=== PATIENT | male | born 1990 | race Hispanic/Latino ===

== ENCOUNTER 2017-04-13 15:26 | Inpatient (IN) | payer OTHER ==
[~2017-04-13] VITALS: Ht 167.6 cm; Wt 79.6 kg
[~2017-04-13 15:26] MED LIST: Dexamethasone 4 mg/mL Inj ONE; EPHEDrine/NS 5 mg/mL 5 mL Syringe ONE; HYDROmorphone 1 mg/mL Inj ONE; Ondansetron 2 mg/mL 2 mL Inj ONE; Phenylephrine/NS 100 mCg/mL 10 mL Syringe IVPUSH ONE; Propofol 10,000 mCg/mL 20 mL Inj ONE; Rocuronium 10 mg/mL 5 mL Inj ONE; fentaNYL-PF 50 mCg/mL 2 mL Inj ONE
[2017-04-13 15:47] VITALS: BP 159/100; PULSE 109; RESP 16; O2SAT 98
[2017-04-13] MEDS ORDERED: 0.9% Sodium Chloride 1,000 ML IV ONE ×2 (16:00→17:15)
[2017-04-13] MEDS ORDERED: Ondansetron 2 mg/mL 2 mL Inj IVPUSH ONE (16:00)
--- NOTE | 2017-04-13 16:06 | ED.REPORT ---
HPI-Abd Pain M Under 40 Date of Service Apr 13, 2017 ED Provider: Maylin Spencer History of Present Illness: 27-year-old male here for sharp right upper quadrant abd pain and nausea and vomiting 3 days. Pain worse after eating. Pain radiates to his back. He has been vomiting and unable to keep food down, he can keep down liquids. 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 He has been in long term for one week. Denies fever although upon arrival here his temperature is 38.1 Celsius. States he had a blood infection 2 and half months ago and was hospitalized that he used his brother's name at that time. He states he does not use any alcohol. Denies hepatitis C. Denies recent trauma. Denies urinary symptoms, testicular pain or penile discharge. He has had some loose stools recently but no constipation. He has no history of abdominal surgeries. Patient is accompanied by officer Nursing Notes Stated Complaint: RIGHT UPPER QUADRANT PAIN Chief Complaint: Male Abdominal Pain Nursing Notes Reviewed: Yes Allergies: Coded Allergies: No Known Allergies (Verified Allergy, 02/01/13) No Active Prescriptions or Reported Meds General Time Seen by MD: 15:52 Chief Complaint Abdominal pain Hx Obtained From: Patient Arrived By: Walk-in Sudden in Onset?: Yes Onset Occurred: 3 days ago Context of Onset: Eating Symptom Duration: Constant Progression since Onset: Constant, Gradually worsening Location: : RUQ Quality: Sharp Radiation: : Back Severity: Current: Severe Severity: Maximum: Severe Associated with: Reports: Back pain, Fever, Nausea, Vomiting Pertinent Negative: Pt denies other symptoms Exacerbated by: Eating Recent Healthcare: No recent doctor visit Similar Sx Previous: No Risk Factors CAD Risk Stratification Amphetamine Past Medical History Past Medical History Notes: "blood infection" from IV drug use Review of Systems Constitutional: Denies: Chills, Fatigue, Fever Respiratory: Denies: Dyspnea on exertion Cardiovascular: Denies: Chest pain GI: Reports: Abdominal pain, Diarrhea, Nausea, Vomiting Male: Denies Dysuria, Denies Flank pain Musculoskeletal: Reports: Back pain Complete sys rev & neg: except as marked. Physical Exam Initial Vital Signs Vital Signs (First) Date Time Temp Pulse Resp B/P Pulse Ox O2 Delivery O2 Flow Rate FiO2 04/13/17 15:47 38.1 109 16 159/100 98 Room Air Initial VS: Reviewed, Vital signs abnormal Head / Eyes: Atraumatic, Normocephalic, PERRL ENT: Mucous membranes moist, Conjunctiva normal, No scleral icterus Extremities: Vascular intact, Neuro intact, No swelling, No tenderness Skin: Warm, Dry, No cyanosis Neurologic: Alert, Oriented, Nonfocal Psychiatric: Mood/affect normal, Behavior normal, Normal thought content General/Constitutional: Awake, Alert, Well appearing Distress / Hydration: Positive: Distress mild Respiratory / Chest: Atraumatic, Breath sounds NL, Breath sounds = bilat, No respiratory distress Cardiovascular: Heart rate NL, Regular rhythm, Heart sounds NL, Peripheral circulation NL Abdomen: Atraumatic, Soft, No guarding, No rebound, BS normoactive, No distention Tenderness/Guarding/Rebound: Positive: Tender RUQ... (Severe), Tender periumbilical, Tender suprapubic Head / Eyes: Normocephalic, PERRL Neurologic: Oriented X3, Speech NL, No motor deficits, No sensory deficits, Memory NL Skin: Atraumatic, Color NL, No rash Interpretation & Diagnostics Lab Results Interpretation Result Diagram: 04/13/17 1630 04/13/17 1800 Test 04/13/17 16:30 04/13/17 17:25 04/13/17 18:00 04/13/17 18:50 White Blood Count 34.4th/mm3 (3.8-10.1) Red Blood Count 5.91mil/mm3 (4.40-5.80) Hemoglobin 16.6g/dL (13.8-17.2) Hematocrit 46.8% (41.0-50.0) Mean Corpuscular Volume 79.2fL (81-100) Mean Corpuscular Hemoglobin 28.1pg (27.0-35.0) Mean Corpuscular Hemoglobin Concent 35.5% (32.0-37.0) Red Cell Distribution Width 14.1% (12.3-15.4) Platelet Count 441bil/L (150-400) Neutrophils (%) (Auto) 89% (40-74) Lymphocytes (%) (Auto) 3% (14-46) Monocytes (%) (Auto) 7% (4-12) Eosinophils (%) (Auto) 1% (0-5) Basophils (%) (Auto) 0% (0-3) Lactic Acid Level 2.1mmol/L (0.4-2.0) Hold Blue Top Tube Received (Received) Sodium Level 132mEq/L (134-144) Potassium Level 4.0mEq/L (3.5-5.2) Chloride Level 95mEq/L (97-108) Carbon Dioxide Level 21mmol/L (18-29) Blood Urea Nitrogen 12mg/dL (6-20) Creatinine 0.63mg/dL (0.76-1.27) Estimat Glomerular Filtration Rate 161mL/min (>59) Glucose Level 116mg/dL (60-99) Calcium Level 8.4mg/dL (8.5-10.1) Magnesium Level 1.8mg/dL (1.6-2.6) Total Bilirubin 0.4mg/dL (0.0-1.2) Aspartate Amino Transf (AST/SGOT) 10U/L (0-50) Alanine Aminotransferase (ALT/SGPT) 7U/L (0-44) Alkaline Phosphatase 85U/L (25-150) Troponin T < 0.010ug/L (0.0-0.011) Total Protein 7.4g/dL (6.4-8.4) Albumin 3.2g/dL (3.4-5.0) Lipase 23U/L (13-60) Hold Urine Received (Received) Re-Eval/Medical Decision Med Decision/Clinical Course US reports large stone in gallbladder, no wall thickening, otherwise NL US. 181- report to dr hutton Patient Discharge & Departure Primary Impression: Acute cholecystitis Additional Impressions: Leukocytosis Leukocytosis type: leukemoid reaction Qualified Code: D72.823 - Leukemoid reaction Cholelithiasis Cholelithiasis location: gallbladder Cholecystitis presence: with cholecystitis Cholecystitis acuity: acute Biliary obstruction: without biliary obstruction Qualified Code: K80.00 - Calculus of gallbladder with acute cholecystitis without obstruction Referrals: NOPCP (PCP) EDSupervising Provider for APC: Shahzad Hutton DO Attending Statement Case was signed out to me from Maylin Spencer. Healthy 27-year-old male with 3 days of right upper quadrant pain that seems postprandial. Today he was febrile. Last meals 8:30 this morning. On exam he is in moderate distress due to pain but he is hemodynamically stable. Exquisitely tender right upper quadrant. Diagnostics reviewed. Pertinent positives are gallstones with possible cholecystitis on ultrasound, CT scan consistent with acute cholecystitis and a 34,000 white blood cell count. His received broad-spectrum antibiotics and IV fluids. I have a page out to our general surgeon Dr. Marmolejo. Maylin Spencer Apr 13, 2017 16:06 Shahzad Hutton DO Apr 13, 2017 19:48
[2017-04-13 16:55] LABS: Mean Corpuscular Hemoglobin 28.1 pg (27.0-35.0); Mean Corpuscular Volume 79.2 fL (81-100); Platelet Count 441 bil/L (150-400)
[2017-04-13 16:56] LABS: BASOPHILS % (AUTO) 0 % (0-3); EOSINOPHILS % (AUTO) 1 % (0-5); MONOCYTES % (AUTO) 7 % (4-12); NEUTROPHILS % (AUTO) 89 % (40-74)
[2017-04-13] MEDS ORDERED: Vancomycin Dose per Pharmacist XX SCH (17:15)
[2017-04-13] MEDS ORDERED: 0.9% Sodium Chloride 500 ML IV ONE (17:15)
[2017-04-13] MEDS ORDERED: Piperacillin-Tazo 3.375 Gm Inj 3.375 GM in Dextrose 5% Minibag Plus 50 ML IV ONE (17:15)
[2017-04-13] MEDS ORDERED: Vancomycin Inj 1,750 MG in 0.9% Sodium Chloride 500 ML IV ONE (17:20)
[2017-04-13 17:51] VITALS: BP 140/76; PULSE 93; RESP 17; O2SAT 98
[2017-04-13 18:53] LABS: Lipase 23 U/L (13-60); Magnesium 1.8 mg/dL (1.6-2.6); TROPONIN T < 0.010 ug/L (0.0-0.011)
--- NOTE | 2017-04-13 19:33 | DRSVH ---
PROCEDURE: CT ABDOMEN AND PELVIS WITH CONTRAST ([id number]) INDICATIONS: 27 year-old male with abd pain. TECHNIQUE: After the administration of intravenous contrast, 5 mm thick sections acquired from the diaphragm to the symphysis. 5 mm coronal and sagittal reformats were acquired. For radiation dose reduction, the following was used: automated exposure control, adjustment of mA and/or kV according to patient linda beaulieu COMPARISON: [facility], US, US ABDOMEN, 04/13/2017, 17:01. FINDINGS: Image quality: Excellent. ABDOMEN: Lung bases: Lung bases are clear. Heart size is normal. Solid organs: Liver and spleen are normal in size and enhancement. Gallbladder contains gallstones. The gallbladder wall is thickened. There is trace amount of pericholecystic fluid. The intrahepatic biliary ducts are mildly dilated. Pancreas enhances normally. No adrenal nodules. Kidneys demonst rate normal size and enhancement, without hydronephrosis. Peritoneum and bowel: Bowel loops demonstrate normal wall thickness and caliber. No free fluid or a ir. Nodes and vessels: No retroperitoneal or mesenteric adenopathy by size criteria. Aorta and inferior vena cava are normal in size. Miscellaneous: No ventral hernias. PELVIS: Genitourinary: Bladder wall thickness is normal. Miscellaneous: No inguinal hernias or adenopathy. Bones: No suspicious bony lesions. No vertebral body compression fractures. IMPRESSION: 1. Cholelithiasis with associated gallbladder wall thickening and trace pericholecystic fluid consist ent with acute cholecystitis. 2. Mild intrahepatic biliary dilation. Dictated by: Mihai Benoit M.D. on 04/13/2017 at 19:25 Approved by: Mihai Benoit M.D. on 04/13/2017 at 19:31
[2017-04-13] MEDS ORDERED: HYDROmorphone 1 mg/mL Inj IVPUSH ONE (19:35)
--- NOTE | 2017-04-13 19:36 | DRSVH ---
PROCEDURE: US ABDOMEN INDICATIONS: Abdominal pain. TECHNIQUE: Real-time scanning was performed of the abdominal and retroperitoneal organs, with image documentatio n. COMPARISON: None. FINDINGS: Liver length: 17.68 cm Gallbladder Wall Thickness: 3.30 mm CHD: 3.80 mm CBD: 4.80 mm Spleen length: 11.12 cm Right kidney length: 11.58 cm Left kidney length: 10.66 cm Liver: Liver is normal in size and homogeneous in echotexture. Gallbladder: There are gallstones. Gallbladder wall is thickened measuring 3.3 mm. No pericholecystic collection or sonographic Grace sign. Biliary ducts: Intrahepatic bile ducts are non-dilated. Extrahepatic bile duct caliber is normal. Normal is 6-7 mm or less in diameter, or 10 mm or less post-cholecystectomy. Pancreas: Not visualized. Spleen: Spleen is normal in size and homogeneous in echotexture. Kidneys: Kidneys are normal in size and echotexture. No hydronephrosis or nephrolithiasis. No francisca d masses. Aorta: Visualized aorta is not visualized. Iliacs: Proximal common iliac arteries are not visualized. IVC: Intrahepatic inferior vena cava is not visualized. Miscellaneous: No free abdominal fluid. IMPRESSION: 1. Cholelithiasis. There is gallbladder wall thickening. Cannot rule out early acute cholecystitis. 2. Suboptimal examination. Pancreas, aorta, and iliac arteries not visualized. Dictated by: Mihai Benoit M.D. on 04/13/2017 at 19:31 Approved by: Mihai Benoit M.D. on 04/13/2017 at 19:34
[2017-04-13 19:42] VITALS: BP 129/66; PULSE 79; RESP 16; O2SAT 79
[2017-04-13] MEDS ORDERED: Vancomycin Dose per Pharmacist XX ONE (21:39)
[2017-04-13 21:45] VITALS: BP 132/73; PULSE 93; RESP 16; O2SAT 97
[2017-04-13] MEDS ORDERED: Lactated Ringer's 500 ML IV PRN (22:03)
[2017-04-13] MEDS ORDERED: Lactated Ringer's 1,000 ML IV SCH (22:03)
--- NOTE | 2017-04-13 22:03 | PCM.HPANE ---
Patient Data Date of Service: Apr 13, 2017 Surgeon Admitting Provider:Juan Jose Marmolejo MD Attending Provider:Juan Jose Marmolejo MD Primary Care Physician:Nopliat Other Provider:Lelo Mosher Anesthesia Reason for Visit Right Upper Quadrant Pain Ht/WT & BMI Height (Feet): 5 Height (Inches): 6 Weight (Kilograms): 75 Body Mass Index Allergies Coded Allergies: No Known Allergies (Verified Allergy, 02/01/13) Past Anesthesia History Anesthesia History: Denies:: Fam Anesthesia Reaction, Fam Malignant Hypertherm Diabetes History Hx Diabetes?: No Medications Hypertension Medication: No No Active Prescriptions or Reported Meds History History of ENT Problems?: No HEENT History: Denies:: Hearing Problem Denture Type: None Teeth Condition: Within Normal Limits Hx of Heart Problems?: No Cardiovascular History: Denies:: Congestive Heart Failure Hypertension Hx of Respiratory Problem?: No Respiratory History: Denies:: Asthma Tuberculosis Hx Neurologic Problems?: No Hx of GI Problems?: Yes Gastrointestinal History: Positive for:: Gall Bladder Disease Hx of Problems?: No Hx Musculoskeletal Problems?: No Hx of Psycho/Social Problems?: Yes Hx Surgeries?: No Hx Diabetes: No Hx Alcohol Use: YesHx Substance Use: NoHave You Smoked inLast 12 mo: Yes Stop/Bang SHARON Risk Assessment: Low Risk, <3 Yes Risk Assessment Category Category 1A: Patient has history of documented sleep apnea, and HAS NOT received any narcotic, sedative or anesthesia administration during this stay. Category 1B: Patient has history of documented sleep apnea, and HAS received any narcotic , sedative or anesthesia administration during this stay Category 2: Patient has SUSPECTED Obstructive Sleep Apnea, and HAS received any narcotic , sedative or anesthesia administration during this stay. Category 3: Patient has SUSPECTED Obstructive Sleep Apnea and HAS NOT received narcotic, sedative or anesthesia administration during this stay. Category 4: Outpatient in Procedural Areas with known sleep apnea or who screen positive for High Risk via the STOP/BANG questionnaire. Exam Exam Vital Signs Vital Signs Date Time Temp Pulse Resp B/P Pulse Ox O2 Delivery O2 Flow Rate FiO2 04/13/17 19:42 37.7 79 16 129/66 79 Room Air 04/13/17 17:51 38.4 93 17 140/76 98 Room Air 04/13/17 15:47 38.1 109 16 159/100 98 Room Air General Appearance: Alert, Oriented X3, Cooperative, No Acute Distress HEENT/AIRWAY: MP 2 Lungs: Clear to Auscultation, Normal Air Movement Heart: Exam Unremarkable, Regular Rate/Rhythm, No Murmurs/Rubs/Gallops Meds/Labs/Diagnostics Admission Meds Current Medications Sodium Chloride (Normal Saline) 1,000 ml @ 0 mls/hr Q0M ONCE IV Last administered on 04/13/17 16:46; Start 04/13/17 at 16:00; Stop 04/13/17 at 16:04 ; Status DC Ondansetron HCl (Zofran Inj) 8 mg ONCE ONCE IVPUSH Last administered on 16:48; Start 04/13/17 at 16:00; Stop 04/13/17 at 16:04; Status DC Ketorolac Tromethamine 30 mg 30 mg ONCE ONCE IVPUSH Last administered on 16:47; Start 04/13/17 at 16:00; Stop 04/13/17 at 16:04; Status DC Sodium Chloride 1,000 ml @ 0 mls/hr Q0M ONCE IV Last administered on 17:37; Start 04/13/17 at 17:15; Stop 04/13/17 at 17:16; Status DC Sodium Chloride 500 ml @ 0 mls/hr Q0M ONCE IV Last administered on 04/13/17 18 :20; Start 04/13/17 at 17:15; Stop 04/13/17 at 17:16; Status DC Piperacillin Sod/ Tazobactam Sod 3.375 gm/Dextrose/ Water 50 ml @ 100 mls/hr ONCE ONCE IV Last administered on 04/13/17 17:40; Start 04/13/17 at 17:15; Stop 04/13/17 at 17:44; Status DC Vancomycin HCl/ Sodium Chloride (Vancocin Inj/ Normal Saline) 500 ml @ 333.333 mls/hr ONCE ONCE IV Last administered on 04/13/17 17:58; Start 04/13/17 at 17 :20; Stop 04/13/17 at 18:49; Status DC Hydromorphone HCl (Dilaudid Inj) 1 mg ONCE ONCE IVPUSH Last administered on 19:40; Start 04/13/17 at 19:35; Stop 04/13/17 at 19:36; Status DC Labs Test 04/13/17 16:30 04/13/17 17:25 04/13/17 18:00 04/13/17 18:50 White Blood Count 34.4th/mm3 (3.8-10.1) Red Blood Count 5.91mil/mm3 (4.40-5.80) Hemoglobin 16.6g/dL (13.8-17.2) Hematocrit 46.8% (41.0-50.0) Mean Corpuscular Volume 79.2fL (81-100) Mean Corpuscular Hemoglobin 28.1pg (27.0-35.0) Mean Corpuscular Hemoglobin Concent 35.5% (32.0-37.0) Red Cell Distribution Width 14.1% (12.3-15.4) Platelet Count 441bil/L (150-400) Neutrophils (%) (Auto) 89% (40-74) Lymphocytes (%) (Auto) 3% (14-46) Monocytes (%) (Auto) 7% (4-12) Eosinophils (%) (Auto) 1% (0-5) Basophils (%) (Auto) 0% (0-3) Lactic Acid Level 2.1mmol/L (0.4-2.0) Hold Blue Top Tube Received (Received) Sodium Level 132mEq/L (134-144) Potassium Level 4.0mEq/L (3.5-5.2) Chloride Level 95mEq/L (97-108) Carbon Dioxide Level 21mmol/L (18-29) Blood Urea Nitrogen 12mg/dL (6-20) Creatinine 0.63mg/dL (0.76-1.27) Estimat Glomerular Filtration Rate 161mL/min (>59) Glucose Level 116mg/dL (60-99) Calcium Level 8.4mg/dL (8.5-10.1) Magnesium Level 1.8mg/dL (1.6-2.6) Total Bilirubin 0.4mg/dL (0.0-1.2) Aspartate Amino Transf (AST/SGOT) 10U/L (0-50) Alanine Aminotransferase (ALT/SGPT) 7U/L (0-44) Alkaline Phosphatase 85U/L (25-150) Troponin T < 0.010ug/L (0.0-0.011) Total Protein 7.4g/dL (6.4-8.4) Albumin 3.2g/dL (3.4-5.0) Lipase 23U/L (13-60) Hold Urine Received (Received) Plan Impression Patient chart reviewed, patient interviewed and anesthestic plan with risks, benefits, and alternatives discussed, and informed consent obtained. NPO per Anesth. Guidelines: Yes ASA Physical Status: ASA2 Mod Systemic Disease Anesthetic Plan: GA Bene/Risks/Altern/Consents: Yes HP Complete Prior to Induction: Yes Colton Martinez MD Apr 13, 2017 21:34
[2017-04-13] MEDS ORDERED: HYDROmorphone 1 mg/mL Inj IVPUSH PRN (22:05)
[2017-04-13] MEDS ORDERED: Phenylephrine 10,000 mCg/mL Inj IVPUSH PRN (22:05)
[2017-04-13] MEDS ORDERED: EPHEDrine Sulfate 50 mg/mL Inj IVPUSH PRN (22:05)
[2017-04-13] MEDS ORDERED: Ondansetron 2 mg/mL 2 mL Inj IVPUSH PRN (22:05)
[2017-04-13] MEDS ORDERED: Atropine 0.4 mg/mL Inj IVPUSH PRN (22:05)
[2017-04-13] MEDS ORDERED: Dexamethasone 4 mg/mL Inj IVPUSH PRN (22:05)
[2017-04-13] MEDS ORDERED: fentaNYL-PF 50 mCg/mL 2 mL Inj IVPUSH PRN (22:05)
[2017-04-13] MEDS ORDERED: MetoCLOpramide 5 mg/mL 2 mL Inj IVPUSH PRN (22:05)
[2017-04-13] MEDS ORDERED: Lactated Ringer's 1,000 ML IV ONE (22:20)
[2017-04-13] MEDS ORDERED: Bupivacaine-MPF 0.5% 30 mL Inj IV ONE (22:37)
[2017-04-14] VITALS (11 sets, daily range): BP systolic 104–135; BP diastolic 56–75; PULSE 84–96; RESP 14–19; O2SAT 97–99
--- NOTE | 2017-04-14 00:26 | PCM.ANEP1 ---
Post Anesthesia PACU Phase 1 Assessment Date of Service: Apr 14, 2017 Vital Signs 37 114/59 96 19 97% RA Anesthetic Administered: GA Level of Alertness: Sleepy, easy to arouse HERNANDEZ's with Equal Strength: Yes Pain: No Pain Scale Score: 0 Nausea or Vomiting: No CV Function & Hydration Stable: Yes Airway Device: Oxygen Delivery: Room Air Lungs: Clear to Auscultation, Normal Air Movement Dermatome Level: Full Sensation PACU Phase 2 Assessment Complications: No Follow up Care: No Patient Instructions Provided: Yes Colton Martinez MD Apr 14, 2017 00:26
[2017-04-14] MEDS ORDERED: MetoCLOpramide 5 mg/mL 2 mL Inj IVPUSH PRN (00:30)
[2017-04-14] MEDS ORDERED: HYDROmorphone 0.5 mg/0.5 mL iSecure Syringe IVPUSH PRN (00:30)
[2017-04-14] MEDS ORDERED: Ondansetron 2 mg/mL 2 mL Inj IVPUSH PRN (00:30)
[2017-04-14] MEDS: oxyCODONE-Acetamin 5-325 mg Tablet PO PRN ×6 (01:24→19:39)
[2017-04-14] MEDS: Dextrose 5% Lactated Ringer's 1,000 ML IV SCH ×2 (01:25→11:28)
[2017-04-14] MEDS: Piperacillin-Tazo 3.375 Gm Inj 3.375 GM in Dextrose 5% Minibag Plus 50 ML IV SCH ×3 (01:37→16:02)
--- NOTE | 2017-04-14 02:01 | NUR ---
Post op Pt arrived to floor~ 0050 in bed. pt is alert and oriented. c/o pain 7/10 in abd/shoulder upon arrival. denies nausea at this time. Educated pt on shoulder pain. medicated with 2 percocet which brought pain to 5/10. tolerating apple juice. pb&j and jello. Oriented to room and call light. Pt recently incarcerated but black ash worker released him in ER therefore he is a free man upon dc. Pt states recent heroin use 6 days ago and states that he was trying to cut back even before he went to [facility]. Pt educated on chemical dependency policy and is agreeable to it. Personal belongings locked up and sharps container taken out of room. Care conts
--- NOTE | 2017-04-14 04:55 | HP ---
[address] [address] HISTORY AND PHYSICAL PATIENT: LAURA RIZO : 1990 MR#: [id number] ADMIT: 04/13/2017 JOB ID: [id number] DATE OF SERVICE: 04/13/2017 Patient seen for decision to operate. HISTORY OF PRESENT ILLNESS: A 27-year-old man with a 2-day history of abdominal pain. He is a little vague. He actually says that when he has gone through heroin withdrawal he has had abdominal pain for a year, but he got put in [facility] and with more careful questioning probably has had onset of abdominal pain for two days. The pain became more severe. He was brought to [facility] in handcuffs, ankle cuffs, and shackles. There he underwent an evaluation by Dr. Shahzad Hutton. Imaging included an abdominal ultrasound that demonstrated gallstones with a gallbladder wall 3.3 mm and no pericholecystic fluid and a negative Grace sign. A CT scan was then obtained which shows a thickened gallbladder wall. Gallstones which are felt to be cholesterol stones. Intrahepatic ducts are mildly dilated. There is a trace amount of pericholecystic cystic fluid. The bile ducts by the ultrasound were 6-[address] his stones appear to have gas in them which is felt to be cholesterol stones. He has not had jaundice, acholic stools, dark urine, and there is no known history of pancreatitis. He thinks an uncle had gallstones. He has never had pain quite as severe as this. He has no history of abdominal surgery. PAST MEDICAL HISTORY: History of heroin use and withdrawal. Currently an inmate at the [facility]. History of methadone use. History of tobacco use. MEDICATIONS: On the outside: None. ALLERGIES: None. SOCIAL HISTORY: He is single, inmate at the [facility]. 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 FAMILY HISTORY: Uncle with gallstones. REVIEW OF SYSTEMS: Otherwise negative. PHYSICAL EXAMINATION: Alert no acute distress. BMI 26.7. Temperature is 37.7. Brachial blood pressure 129/66, pulse 79, respiratory rate 16, O2 sat is listed as 79% but earlier was 98%. He does not look he is not in any respiratory distress. HEENT: PERRLA, EOMI no scleral icterus. Neck: Trachea midline. No masses. Lungs clear. Cardiac exam regular rhythm, no murmurs or gallops appreciated. Abdomen marked right upper quadrant tenderness. No other quadrant tenderness. Extremities no edema. Skin: Nonjaundiced, no anterior abdominal wall rashes. Neurologic exam appropriate affect. No obvious cranial nerve deficits. Moves all extremities, although his movement is limited by chains and shackles. Gait not tested. LABORATORY RESULTS: White count 34,400, hematocrit is 46.8, platelet count 441,000. Sodium 132, potassium 4.0, creatinine 0.63. Glucose 116. Bilirubin is 0.4. AST 10. ALT 7. Lipase 23. Magnesium 1.8. Abdominal ultrasound and CT scan are personally reviewed by myself and I discussed them with Dr. Benoit. IMPRESSION: Acute calculous cholecystitis. I discussed options with the patient. I have recommended proceeding with a laparoscopic cholecystectomy and cholangiograms, possible open cholecystectomy. The patient is also aware that depending on severity that he may have a partial cholecystectomy. I did discuss general recovery following a cholecystectomy. But, I told him and the patrol deputy sheriff that is currently present that I can not be specific. A signed consent was obtained and patient agrees with this plan. I told him I did not think there is any other good alternative, although I did mention admission with antibiotics and possible cholecystostomy, but I think those are poor choices. He agrees to proceed to the operating room.
--- NOTE | 2017-04-14 06:00 | OP ---
[address] [address] OPERATIVE REPORT PATIENT: LAURA RIZO : 1990 MR#: [id number] ADMIT: 04/13/2017 JOB ID: [id number] DATE OF SURGERY: 04/14/2017 PREOPERATIVE DIAGNOSIS(ES): Acute calculous cholecystitis. POSTOPERATIVE DIAGNOSIS(ES): Gangrenous cholecystitis. OPERATION: Laparoscopic cholecystectomy and cholangiograms, . SURGEON: Juan Jose Marmolejo MD. ECONOMICS TEACHER: Aryan Anne PA-C. INDICATIONS: A 27-year-old male with a 2-3 day history of abdominal pain. He was an inmate at the halfway [facility] and by ultrasound and CT scan had cholecystitis. He had a white count of 35,000. He had a normal bilirubin. He had marked right upper quadrant tenderness. After discussing options with the patient, it was elected to proceed with a laparoscopic cholecystectomy and cholangiograms, possible open cholecystectomy. FINDINGS: 1. Assistance by Martinez Anne PA-C was critical to the successful completion of this operation. 2. Gangrenous cholecystitis with a portion of the hepatic gallbladder wall being left in place. 3. Multiple gallstones. 4. Normal cholangiograms. DESCRIPTION OF PROCEDURE: At the beginning and end of the operation, SCOAP checklist was completed. A general endotracheal anesthetic was induced and using ChloraPrep, he was prepped and draped in the usual fashion. He had on pneumatic hose and received preoperative antibiotics. All trocar sites were infiltrated with 0.5% plain bupivacaine. An infraumbilical incision was made. The abdominal cavity was entered. A cannula inserted. The abdomen was insufflated with CO2. Accessory 5 mm ports were placed under direct visualization. One in the upper midline and two in the right upper quadrant. The gallbladder was severely inflamed. The fundus was elevated, but it was difficult to elevate it significantly. With careful blunt dissection, the duodenum was mobilized off of the infundibulum which ultimately when exposed was retracted inferiorly and laterally. There was a very large Calot's node. This was carefully dissected off of the gallbladder with blunt dissection and cautery. It was overlying the cystic artery, which was exposed up onto the gallbladder and then divided between two clips proximally and one distally. The origin of the cystic duct was then identified after dissecting out the complete triangle of Calot and obtaining the critical view. Right at the origin of the cystic duct from the gallbladder a clip was placed. A small incision was made in the cystic duct and cholangiograms were obtained. There is no evidence of intraductal filling defects. There was free flow into the duodenum and the intrahepatic ducts were visualized. The cholangiocatheter was then removed and two clips were placed proximally in the cystic duct and it was divided. Dissecting the gallbladder away from the liver was difficult because of the severe marked inflammation and the necrosis of the posterior wall of the gallbladder. Ultimately, I entered the gallbladder and eventually four large stones were removed. All of the gallbladder was removed with the exception of the superior hepatic portion of the wall, which demonstrated to be mucosal necrosis. The gallbladder was then placed into a specimen bag and the four stones were also placed into the same specimen bag. The subhepatic space was irrigated with saline and aspirated and the 19[address] [address] drain was positioned into the subhepatic space exiting through the lateral right upper quadrant trocar site and secured with 2-0 nylon. The specimen bag was removed through the umbilical port. Trocars were removed without evidence of bleeding. The umbilical fascial incision was closed with running 0-Vicryl. The subumbilical subcutaneous tissue was irrigated with saline. The umbilical incision was closed with two interrupted deep dermal 4-0 Vicryl sutures. The 4-0 Vicryl was also used to close the other two 5 mm ports followed by placing Steri-Strips and Band-Aids. The estimated blood loss was 40 cc. There are no apparent complications. The final sponge, needle, and instrument counts were announced as correct and the patient was returned to recovery room in stable condition. This cholecystectomy was significantly more difficult than a typical cholecystectomy. Taking approximately 2.5 hours for completion.
--- NOTE | 2017-04-14 07:55 | DRSVH ---
PROCEDURE: X-RAY OPERATIVE CHOLANGIOGRAM ([id number]) INDICATIONS: CHOLECYSTECTOMY COMPARISON: None. FINDINGS: Biliary ducts: The surgeon injected contrast into the biliary ducts after cannulation of the cystic duct stump. Visualized intra- and extrahepatic bile ducts are normal in caliber. There is a small am ount of filling defect within the distal common bile duct. No evidence for iatrogenic ductal injury. Duodenum: Contrast flows promptly through the sphincter of Oddi into the duodenum, which appears nor mal in caliber. IMPRESSION: Possible sludge versus calculi within the distal common bile duct. Dictated by: Jc Lopez M.D. on 04/14/2017 at 7:52 Approved by: Jc Lopez M.D. on 04/14/2017 at 7:54
[2017-04-14 10:03] LABS: BASOPHILS % (AUTO) 0.1 % (0-3); EOSINOPHILS % (AUTO) 0.1 % (0-5); MONOCYTES % (AUTO) 2.3 % (4-12); Mean Corpuscular Hemoglobin 27.7 pg (27.0-35.0); Mean Corpuscular Volume 82.9 fL (81-100); NEUTROPHILS % (AUTO) 94.5 % (40-74); Platelet Count 347 bil/L (150-400)
--- NOTE | 2017-04-14 12:54 | PROG NOTE ---
[address] [address] PROGRESS NOTE PATIENT: LAURA RIZO : 1990 MR#: [id number] ADMIT: 04/13/2017 JOB ID: [id number] DATE: 04/14/2017 SUBJECTIVE: Postop day one laparoscopic cholecystectomy. Patient feels well, tolerating p.o. liquids and pain medications. His Jack-Sanderson drainage is putting out a small amount of serous fluid. His incisions are healing well. LABORATORY: White count is 25.6, hematocrit is 36. Platelet count is down to 347. Liver function tests are normal. IMPRESSION AND PLAN: Doing well. Will continue IV antibiotics given his elevated white count and the degree of inflammation found at the time of surgery. We will otherwise advance his diet and switch him over to all oral medications other than his antibiotics.
--- NOTE | 2017-04-14 16:17 | NUR ---
Social Work- Multidisciplinary Rounds Pt discussed in rounds. Pt has history of meth and heroin and would benefit from CD assessment. Pt is POD 1. SW unable to see pt today due to high census. SW will continue to follow. JAMAAL Steiner
--- NOTE | 2017-04-14 17:49 | NUR ---
Activity Pt. ambulating in halls with supervision today. Pain being managed with 2 tabs percocet Q3-4. RA. Pt. is passing flatus but no bowel movement. Good oral intake with general diet.
[2017-04-15] MEDS: Piperacillin-Tazo 3.375 Gm Inj 3.375 GM in Dextrose 5% Minibag Plus 50 ML IV SCH ×2 (00:28→08:01)
[2017-04-15] MEDS: oxyCODONE-Acetamin 5-325 mg Tablet PO PRN ×3 (01:30→11:58)
--- NOTE | 2017-04-15 02:33 | NUR ---
Pain Pt abdominal pain up to 04/01 and he has been taking 2 percocet q4-5 hrs to keep this pain under control. Pt reports this to be effective. Pt continues to tolerate a general diet. He walked in the decker with supervision before bedtime. Three lap sites are CDI and LUIS ENRIQUE drain with sero-sanguinous output.
[2017-04-15 04:48] VITALS: BP 127/74; PULSE 76; RESP 18; O2SAT 99
[2017-04-15 05:57] LABS: BASOPHILS % (AUTO) 0.1 % (0-3); EOSINOPHILS % (AUTO) 7.9 % (0-5); MONOCYTES % (AUTO) 6.4 % (4-12); Mean Corpuscular Hemoglobin 27.6 pg (27.0-35.0); Mean Corpuscular Volume 83.4 fL (81-100); Platelet Count 362 bil/L (150-400)
[2017-04-15] MEDS ORDERED: 0.9% Sodium Chloride 250 ML ONE (08:02)
--- NOTE | 2017-04-15 08:17 | PCM.PNSURG ---
Subjective Date of Service: Apr 15, 2017 Visit Information: Reason for Visit Right Upper Quadrant Pain Surgery/Surgery Date Post-Op Day # 1 Date of Admission: Apr 13, 2017 at 20:15 Hospital Day # Subjective: Seen and examined with the assistance of the hospital engine head repairer. Pain well controlled with oral analgesic. Eating solid foods with no nausea or vomiting. Bowel movement this morning. Ambulatory in the hallway yesterday in the room today. Postop General: No Complaints Gastrointestinal: No N/V, Passing Stool Pain Management: PO Postop Activity: Ambulating Independently Objective Vital Sign- Last 8 Hours Date Time Temp Pulse Resp B/P Pulse Ox O2 Delivery O2 Flow Rate FiO2 04/15/17 04:48 36.6 76 18 127/74 99 Room Air Intake and Output- Last 8 Hour 04/15/17 Cumulative From/Thru 07:00 04/13/17 00:34 - 04/15/17 06:37 Intake Total 800 ml 8242 ml Output Total 920 ml 2455 ml Balance -120 ml 5787 ml Intake Oral 750 ml 3344 ml IV Total 50 ml 4898 ml Output Urine Total 900 ml 2350 ml Drainage Total 20 ml 105 ml # Bowel Movements 0 General: Alert, Cooperative, No Acute Distress, Anicteric Lungs: Clear to Auscultation Heart: Regular Rate/Rhythm, No Murmurs/Rubs/Gallops Abdomen: Soft, Appropriately tender, Non-distended SURGICAL WOUND : Wound General Appearence: Steri Strips, Sutures, No Erythema, No Discharge, Wound under dressing Wound Drainage Type: LUIS ENRIQUE Drain #1 (20 mL of serosanguineous output overnight) Neuro: Normal Speech Catheters: None Result Diagram: 04/15/17 0515 04/15/17 0515 Assessment & Plan Impression Primary diagnoses: Gangrenous cholecystitis. POD #1, stable for discharge. Other chronic conditions: 1. History of heroin use 2. History of cigarette smoking Problems: Plan 1. Remove LUIS ENRIQUE drain 2. Discharge from the hospital. The patient will follow-up in the clinic in 2- 3 weeks. He is cautioned to call or return for: Jaundice, fever, nausea or vomiting, or increasing abdominal pain. Pain Management: Oral analgesic VTE Prophylaxis: SCDs Resuscitation Status: CPR: Attempt Resuscitation Lino Willard PA-C Apr 15, 2017 08:17
--- NOTE | 2017-04-15 08:21 | PCM.DISURG ---
Surgical Discharge Instruction Date of Service Apr 15, 2017 Dates of Hospitalization Date of Hospital Admission Apr 13, 2017 at 20:15 Providers Admitting Physician: Juan Jose Marmolejo MD Primary Care Physician: Nopcp Attending Physician: Juan Jose Marmolejo MD Discharge Diagnosis Discharge Diagnosis Primary diagnoses: Gangrenous cholecystitis. Other chronic conditions: 1. History of heroin use 2. History of cigarette smoking Post Operative diagnosis Same Activity Discharge Activity-General: Balance rest and activity, Activity as pain allows , No lifting >15 pounds for 2 weeks, No driving while taking narcotic Dressing and Incisional Care Dressing Care: Allow Steri Stripes to fall off, Remove outer dressing after 24 hrs Hygiene: May shower Follow Up Plan Mid-level Provider (F9): Lino Willard PA-C Follow-up appointment: Weeks (2-3) Call your provider for: Fever, Chills, Increasing abdominal pain, Nausea, Vomiting, Wound redness, Increasing wound pain, Warmth to touch, Discharge @ incision, pus discharge, Other (jaundice) Lino Willard PA-C Apr 15, 2017 08:21
[2017-04-15] MEDS ORDERED: Acetaminophen PO (08:24)
[2017-04-15] MEDS ORDERED: OXYC5TAB72 PO (08:24)
--- NOTE | 2017-04-15 08:27 | PCM.DC.SUR ---
Discharge Summary Date of Service: Apr 15, 2017 Date of Hospital Admission: Apr 13, 2017 at 20:15 Date of Operation(s): 04/14/2017 Date of Discharge: 04/15/2017 Diagnosis at Time of Discharge Primary diagnoses: Gangrenous cholecystitis. Other chronic conditions: 1. History of heroin use 2. History of cigarette smoking Problems: Operation Laparoscopic cholecystectomy and cholangiograms Brief History and Physical: A 27-year-old male with a 2-3 day history of abdominal pain. By ultrasound and CT scan he had cholecystitis. He had a white count of 35,000. He had a normal bilirubin. He had marked right upper quadrant tenderness. Consultants: None Hospital Course: The patient was admitted and underwent the above-mentioned operation without complication. Through the day following his operation and what was felt count decreased and eventually normalized prior to discharge. By the time of discharge the patient was eating a solid diet with no nausea or vomiting, pain was well controlled with oral analgesic, he was ambulatory without assistance, and he had no jaundice. Pathology: Pending Disposition: The patient was discharged from the hospital on his first postsurgical day. Follow-up Plan: He will follow-up in the office with Lino Willard PA-C in 2-3 weeks. ([Acetaminophen]) 325 MG TABLET 650 MG PO Q4H PRN PRN For Mild Pain or Fever oxyCODONE (oxyCODONE) 5 Mg Tablet 5 MG PO Q4H PRN PRN For Pain Lino Willard PA-C Apr 15, 2017 08:27
--- NOTE | 2017-04-15 10:38 | NUR ---
Social Work: Initial Assessment/Readiness for Discharge/Multi-Disciplinary Rounds D:EMR reviewed. Please see Initial Assessment linked to this note for more information. Pt is a 27 y/o male admitted for right upper quadrant pain per H&P. Pt has a re-admit risk score of 1. FRANCES met with pt at bedside to conduct initial assessment. Pt was alert and oriented x3. FRANCES explained role and wrote phone number on white board. SW provided "Your Discharge Planning Checklist" and encouraged pt to contact SW for any discharge planning questions. Pt does not have insurance or a PCP. SW discussed this with pt and pt declined RCA, Shirley Application, and PCP appointment. SW discussed hx of IVDU. Pt declined a CD assessment. SW provided CD resource list. Pt agreeable to seek CDP using resource list. Pt declined DPOA/advanced directive ppw. Pt gave verbal consent to contact mother Hansa Agosto ([phone]) for discharge planning. Per rounds, pt to discharge today. A: FRANCES assessed pt's capacity for self-care. SW does not have any concerns for pt's capacity for self-care. Pt is independent at baseline. P: Pt to discharge to his mothers house with his mother via POV today. FRANCES does not anticipate ant discharge needs at this time but will continue to follow if needs arise. JAMAAL Fonseca Addendum: 04/15/17 at 1434 by SAV COKER SS Amended: Links added.
[2017-04-15 11:26] VITALS: BP 132/58; PULSE 98; RESP 17; O2SAT 98
--- NOTE | 2017-04-15 12:05 | NUR ---
Discharge Pt discharged to home with family via private vehicle at 1200 hrs. Two PIVs removed intact. VSS. Pain controlled with Percocet. LUIS ENRIQUE drain removed and covered with gauze and tegaderm. Instructed pt to watch for signs and symptoms of infection (fever, chills, increased redness, pain, or discharge). Instructed pt to make follow up appointment with the surgeon and highlighted the phone # on pt's discharge papers. Pt expressed verbal understanding.
--- NOTE | 2017-04-15 12:51 | NUR ---
Social Work: Discharge D: EMR reviewed .Pt is on day 2 of hospitalization. Pt discussed in rounds, no needs identified. A: SW assessed pt's capacity for self-care. SW does not have any concerns for pt's capacity for self-care. Pt is independent at baseline. P: Pt to discharge to his mothers house with his mother via POV today. Pt provided CD resources and declined CDP assessment. No further SW needs identified. JAMAAL Fonseca
--- NOTE | 2017-04-16 13:28 | PATH ---
SURGICAL PATHOLOGY Attending Physician:Dafne Barillas CASE STATUS: Signed Out PATIENT NAME: LAURA RIZO PID: [id number] : 1990 DATE COLLECTED:04/13/2017 00:00 SPECIMEN: Gallbladder CLINICAL HISTORY: CHOLECYSTITIS, RIGHT UPPER QUADRANT PAIN 1). GALLBLADDER FINAL DIAGNOSIS: Gallbladder: Cholelithiasis with associated acute and chronic cholecystitis. ICD10: K80.66 GROSS DESCRIPTION: The specimen is received in one formalin filled container labeled with the patient's name, sublabeled "gallbladder" and consists of an opened 10.5 x 3.0 x 2.5 CM gallbladder. The serosa is smooth. The cystic duct is possibly identified. The wall is 0.3-1.2 CM in thickness. The mucosa is a dark lee-brown in color. The lumen contains 4 green lee rough calculi which range in size from 0.8-2.0 CM in greatest dimension. 6 signs and displays sales representative sections are submitted in 2 cassettes. 04/15/2017DC ICD-9 CODES: CPT CODES: 1: 47558 Electronically Signed Out Iggy Coleman MD [facility] Pathology [facility] [address], [place] [address] Technical component performed at [facility], [address] [place] [address] Ave[address], [place], [address]
== END 2017-04-15 12:03 | disposition home or self-care (01) | DRG 419 ==
LOC: SED 15:26 → OSC 20:15
PROVIDERS: ADMIT Surgery; ATTEND Surgery
PROC: 0FT44ZZ Resection of Gallbladder, Percutaneous Endoscopic Approach (ICD-10-PCS; principal; 2017-04-14)
DX: K80.00 Calculus of gallbladder with acute cholecystitis without obstruction (principal)